=== PATIENT | female | born 1950 | race Caucasian/White ===

== ENCOUNTER 2022-06-11 10:04 | Inpatient (IN) | payer MEDICARE, OTHER ==
[~2022-06-11] VITALS: Ht 162.6 cm; Wt 49.0 kg
[2022-06-11] MEDS ORDERED: SODIUM CHLORIDE 0.9% 500 ML IV ONE (10:30)
[2022-06-11 10:58] LABS: Basophils # (auto) 0 10 ^3/uL (0-0.2); Basophils % (auto) 0.4 % (0.0-2.0); Eosinophils # (auto) 0 10 ^3/uL (0-0.8); Eosinophils % (auto) 0.1 % (0.0-7.0); Hematocrit 45.8 % (36.0-46.0); Hemoglobin 15.4 g/dL (12.2-16.2); Lymphocytes # (auto) 1.2 10 ^3/uL (0.4-5.4); Lymphocytes % (auto) 21.1 % (10.0-50.0); Mean Corpuscular Hemoglobin 30.9 pg (28.0-32.0); Mean Corpuscular Hgb Conc. 33.7 g/dL (32.0-36.0); Mean Corpuscular Volume 91.7 fL (80.0-100.0); Monocytes # (auto) 0.4 10 ^3/uL (0-1.3); Monocytes % (auto) 6.8 % (0.0-12.0); Neutrophils # (auto) 4.2 10 ^3/uL (1.6-8.6); Neutrophils % (auto) 71.6 % (37.0-80.0); Nucleated Red Blood Cells % 0.1 %; Red Cell Distribution Width 12.5 % (11.8-14.3); White Blood Cell 5.9 10^3/uL (4.4-10.8)
[2022-06-11 11:07] LABS: Albumin 3.4 g/dL (3.4-5.0); Calcium 8.5 mg/dL (8.5-10.1); Magnesium 1.6 mg/dL (1.6-2.6); Potassium 3.7 mmol/L (3.5-5.1)
[2022-06-11 11:10] LABS: BUN/Creatinine Ratio 18.2; Bilirubin, Total 0.6 mg/dL (0.2-1.0)
[2022-06-11] MEDS ORDERED: AZIT1POW PO (14:31)
[2022-06-11] MEDS ORDERED: ONDA-144 PO (14:31)
[2022-06-11] MEDS ORDERED: METH4PAK PO (14:32)
[2022-06-11] MEDS ORDERED: methylPREDNISolone SOD SUCC 125 MG/2 ML VL IV ONE (14:45)
[2022-06-11] MEDS ORDERED: AZITHROMYCIN 500MG/ 250ML 250 ML IV ONE (14:45)
[2022-06-11] MEDS ORDERED: SODIUM CHLORIDE 0.9% 1,000 ML IV ONE ×2 (16:00)
[2022-06-11] MEDS ORDERED: IPRATROPIUM BROM 0.5 MG/2.5ML INH SOL NEB PRN (16:00)
[2022-06-11] MEDS ORDERED: IOHEXOL 350 MG/ML 100ML IJ ONE (16:30)
[2022-06-11 16:48] VITALS: BP 124/84
[2022-06-11] MEDS ORDERED: levoFLOXacin 500MG 100 ML IV ONE (17:00)
[2022-06-11] MEDS ORDERED: ALBUTEROL SULF 2.5 MG/0.5ML(0.5%) NEB SOLN HHN PRN (18:00)
[2022-06-11] MEDS ORDERED: HYDROmorphone HCL 2 MG/ML VL/or syr IV ONE (19:15)
[2022-06-12] MEDS ORDERED: HYDROmorphone HCL 2 MG/ML VL/or syr IV ONE (05:15)
[2022-06-12 06:03] LABS: Urine Bacteria FEW /hpf (None Seen); Urine Blood Negative /uL (Negative); Urine Mucus FEW (None Seen); Urine WBC 2 /hpf (0 - 5)
[2022-06-12 06:31] LABS: Basophils # (auto) 0.1 10 ^3/uL (0-0.2); Basophils % (auto) 0.5 % (0.0-2.0); Eosinophils # (auto) 0 10 ^3/uL (0-0.8); Hematocrit 42.3 % (36.0-46.0); Hemoglobin 14.9 g/dL (12.2-16.2); Lymphocytes # (auto) 0.6 10 ^3/uL (0.4-5.4); Lymphocytes % (auto) 5.2 % (10.0-50.0); Mean Corpuscular Hemoglobin 31.5 pg (28.0-32.0); Mean Corpuscular Hgb Conc. 35.2 g/dL (32.0-36.0); Mean Corpuscular Volume 89.6 fL (80.0-100.0); Monocytes # (auto) 0.6 10 ^3/uL (0-1.3); Monocytes % (auto) 5.3 % (0.0-12.0); Neutrophils # (auto) 10.8 10 ^3/uL (1.6-8.6); Nucleated Red Blood Cells % 0.1 %; Red Blood Cells 4.72 10^6/uL (4.0-5.20); Red Cell Distribution Width 12.2 % (11.8-14.3); White Blood Cell 12.2 10^3/uL (4.4-10.8)
[2022-06-12 06:49] LABS: BUN/Creatinine Ratio 35.3; Calcium 8.1 mg/dL (8.5-10.1); Potassium 3.4 mmol/L (3.5-5.1)
[2022-06-12 11:19] LABS: Alcohol, Urine < 3.0 mg/dL (0-10); Amphetamine Screen, Urine NEGATIVE (NEGATIVE); Barbiturate Scree,Urine NEGATIVE (NEGATIVE); Benzodiazephine Screen, Urine POSITIVE (NEGATIVE); Cannabinoid Screen, Urine POSITIVE (NEGATIVE); Cocaine Screen, Urine NEGATIVE (NEGATIVE); Opiate Scree,Urine NEGATIVE (NEGATIVE); Phencyclidine Screen, Urine NEGATIVE (NEGATIVE)
[2022-06-12] MEDS: levoFLOXacin 250MG 50 ML IV SCH (12:11)
[2022-06-12] MEDS: PANTOPRAZOLE 40 MG/10 ML VIAL INJ IV SCH (12:12)
[2022-06-12] MEDS: ONDANSETRON HCL 4 MG/2 ML VIAL IV PRN (12:12)
[2022-06-12] MEDS: LORazepam 0.5 MG TAB PO PRN ×2 (12:12→20:22)
[2022-06-12] MEDS ORDERED: REMDESIVIR PER PHARMACY 0 ML IV SCH (18:15)
[2022-06-12] MEDS ORDERED: DexAMETHasone SOD PHOS 10MG/1ML VIAL INJ IV ONE (18:15)
[2022-06-12] MEDS ORDERED: REMDESIVIR 200 MG in NS 210ml LOADING DOSE ADULT IV ONE (20:00)
[2022-06-12] MEDS: POTASSIUM CHL 20MEQ/100ML 100 ML IV SCH (20:23)
[2022-06-12] MEDS: ACETAMINOPHEN 325 MG TAB PO PRN (20:23)
[2022-06-13] MEDS: POTASSIUM CHL 20MEQ/100ML 100 ML IV SCH (00:12)
[2022-06-13 06:48] LABS: Hematocrit 38.1 % (36.0-46.0); Hemoglobin 13.7 g/dL (12.2-16.2); Mean Corpuscular Hemoglobin 34.6 pg (28.0-32.0); Mean Corpuscular Hgb Conc. 35.9 g/dL (32.0-36.0); Mean Corpuscular Volume 96.3 fL (80.0-100.0); Red Blood Cells 3.96 10^6/uL (4.0-5.20); Red Cell Distribution Width 12.1 % (11.8-14.3); White Blood Cell 18.8 10^3/uL (4.4-10.8)
[2022-06-13 06:53] LABS: Basophils % (manual) 0 (0.0-2.0); Blast Cells 0; Eosinophils % (manual) 0 (0-7); Metamyelocytes % 0; Monocytes % (manual) 0 (0-12); Myelocytes % 0; Promyelocytes % 0; Reactive Lymphocytes 0
[2022-06-13 06:59] LABS: Potassium 4.2 mmol/L (3.5-5.1)
[2022-06-13 07:11] LABS: Bilirubin, Total 0.4 mg/dL (0.2-1.0); Calcium 8.2 mg/dL (8.5-10.1)
[2022-06-13] MEDS: ACETAMINOPHEN 325 MG TAB PO PRN (08:16)
[2022-06-13 09:27] LABS: Band Neutrophils % (manual) 26; Lymphocytes % (manual) 6 (10.0-50.0)
[2022-06-13] MEDS: levoFLOXacin 250MG 50 ML IV SCH (10:10)
[2022-06-13] MEDS: PANTOPRAZOLE 40 MG/10 ML VIAL INJ IV SCH (10:10)
[2022-06-13] MEDS: DexAMETHasone SOD PHOS 10MG/1ML VIAL INJ IV SCH (10:10)
[2022-06-13] MEDS: HYDROcodone-ACET 5/325MG TAB PO PRN ×2 (10:48→17:19)
[2022-06-13] MEDS: REMDESIVIR 100mg 100 MG in SODIUM CHL 0.9% 230 ML IV SCH (17:19)
[2022-06-13 17:33] VITALS: BP 117/74
[2022-06-13 18:10] VITALS: BP 117/74
[2022-06-13 22:00] VITALS: BP 114/59
[2022-06-14] MEDS: HYDROcodone-ACET 5/325MG TAB PO PRN ×3 (00:06→16:36)
[2022-06-14 06:29] LABS: Basophils # (auto) 0 10 ^3/uL (0-0.2); Eosinophils # (auto) 0 10 ^3/uL (0-0.8); Hematocrit 38.6 % (36.0-46.0); Hemoglobin 13.6 g/dL (12.2-16.2); Lymphocytes # (auto) 0.6 10 ^3/uL (0.4-5.4); Lymphocytes % (auto) 3.5 % (10.0-50.0); Mean Corpuscular Hemoglobin 31.9 pg (28.0-32.0); Mean Corpuscular Hgb Conc. 35.1 g/dL (32.0-36.0); Mean Corpuscular Volume 90.7 fL (80.0-100.0); Monocytes # (auto) 0.6 10 ^3/uL (0-1.3); Monocytes % (auto) 3.8 % (0.0-12.0); Neutrophils # (auto) 14.7 10 ^3/uL (1.6-8.6); Neutrophils % (auto) 92.7 % (37.0-80.0); Red Blood Cells 4.26 10^6/uL (4.0-5.20); Red Cell Distribution Width 12.1 % (11.8-14.3); White Blood Cell 15.9 10^3/uL (4.4-10.8)
[2022-06-14 06:46] LABS: BUN/Creatinine Ratio 41.1; Calcium 8.4 mg/dL (8.5-10.1)
[2022-06-14 06:50] LABS: Bilirubin, Total 0.4 mg/dL (0.2-1.0); Total Protein 5.7 g/dL (6.4-8.2)
[2022-06-14] MEDS: PANTOPRAZOLE 40 MG/10 ML VIAL INJ IV SCH (08:59)
[2022-06-14] MEDS: ENOXAPARIN SOD 40 MG/0.4 ML SYRINGE SC SCH (08:59)
[2022-06-14] MEDS: DexAMETHasone SOD PHOS 10MG/1ML VIAL INJ IV SCH (08:59)
[2022-06-14] MEDS: levoFLOXacin 250MG 50 ML IV SCH (08:59)
[2022-06-14] MEDS: LORazepam 0.5 MG TAB PO PRN (09:05)
[2022-06-14 09:18] VITALS: BP 123/64
[2022-06-14 11:10] VITALS: BP 120/61
[2022-06-14 13:00] VITALS: BP 127/79
[2022-06-14] MEDS: REMDESIVIR 100mg 100 MG in SODIUM CHL 0.9% 230 ML IV SCH (14:29)
[2022-06-14 17:00] VITALS: BP 116/69
[2022-06-14] MEDS: ACETAMINOPHEN 325 MG TAB PO PRN (20:28)
[2022-06-14 22:00] VITALS: BP 119/72
[2022-06-15] MEDS: HYDROcodone-ACET 5/325MG TAB PO PRN ×3 (00:44→15:28)
[2022-06-15 05:00] VITALS: BP 133/73
[2022-06-15 07:04] LABS: Basophils # (auto) 0 10 ^3/uL (0-0.2); Eosinophils # (auto) 0 10 ^3/uL (0-0.8)
[2022-06-15 07:06] LABS: Basophils % (auto) 0.1 % (0.0-2.0); Hematocrit 36.5 % (36.0-46.0); Hemoglobin 13.2 g/dL (12.2-16.2); Lymphocytes # (auto) 0.6 10 ^3/uL (0.4-5.4); Lymphocytes % (auto) 4.9 % (10.0-50.0); Mean Corpuscular Hemoglobin 35.8 pg (28.0-32.0); Mean Corpuscular Hgb Conc. 36.1 g/dL (32.0-36.0); Mean Corpuscular Volume 99.3 fL (80.0-100.0); Monocytes % (auto) 8.6 % (0.0-12.0); Neutrophils # (auto) 10.2 10 ^3/uL (1.6-8.6); Neutrophils % (auto) 86.4 % (37.0-80.0); Red Blood Cells 3.68 10^6/uL (4.0-5.20); Red Cell Distribution Width 11.9 % (11.8-14.3); White Blood Cell 11.8 10^3/uL (4.4-10.8)
[2022-06-15 07:28] LABS: Albumin 2.9 g/dL (3.4-5.0); Calcium 7.7 mg/dL (8.5-10.1); Potassium 3.5 mmol/L (3.5-5.1)
[2022-06-15 07:31] LABS: BUN/Creatinine Ratio 40.7; Bilirubin, Total 0.3 mg/dL (0.2-1.0); Total Protein 5.6 g/dL (6.4-8.2)
[2022-06-15 09:00] VITALS: BP 117/79
[2022-06-15] MEDS: ENOXAPARIN SOD 40 MG/0.4 ML SYRINGE SC SCH (09:10)
[2022-06-15] MEDS: levoFLOXacin 250MG 50 ML IV SCH (09:10)
[2022-06-15] MEDS: DexAMETHasone SOD PHOS 10MG/1ML VIAL INJ IV SCH (09:10)
[2022-06-15 13:00] VITALS: BP 130/77
[2022-06-15] MEDS: REMDESIVIR 100mg 100 MG in SODIUM CHL 0.9% 230 ML IV SCH (15:28)
[2022-06-15 17:00] VITALS: BP 143/76
[2022-06-15] MEDS: ACETAMINOPHEN 325 MG TAB PO PRN (20:43)
[2022-06-15] MEDS: ONDANSETRON HCL 4 MG/2 ML VIAL IV PRN (20:54)
[2022-06-15] MEDS ORDERED: traMADol HCL 50 MG TAB PO ONE (21:15)
[2022-06-15 22:00] VITALS: BP 154/83
[2022-06-16 05:00] VITALS: BP 142/78
[2022-06-16 06:49] LABS: Albumin 2.8 g/dL (3.4-5.0); Calcium 7.6 mg/dL (8.5-10.1); Potassium 3.6 mmol/L (3.5-5.1)
[2022-06-16 06:53] LABS: BUN/Creatinine Ratio 40.4; Bilirubin, Total 0.3 mg/dL (0.2-1.0); Total Protein 5.5 g/dL (6.4-8.2)
[2022-06-16 07:22] LABS: Basophils # (auto) 0 10 ^3/uL (0-0.2); Basophils % (auto) 0.2 % (0.0-2.0); Eosinophils # (auto) 0 10 ^3/uL (0-0.8); Hematocrit 39.9 % (36.0-46.0); Hemoglobin 13.9 g/dL (12.2-16.2); Lymphocytes # (auto) 0.7 10 ^3/uL (0.4-5.4); Lymphocytes % (auto) 5.8 % (10.0-50.0); Mean Corpuscular Hemoglobin 30.9 pg (28.0-32.0); Mean Corpuscular Hgb Conc. 34.7 g/dL (32.0-36.0); Mean Corpuscular Volume 88.9 fL (80.0-100.0); Monocytes % (auto) 8.8 % (0.0-12.0); Neutrophils % (auto) 85.2 % (37.0-80.0); Nucleated Red Blood Cells % 0.4 %; Red Blood Cells 4.49 10^6/uL (4.0-5.20); Red Cell Distribution Width 11.8 % (11.8-14.3); White Blood Cell 11.8 10^3/uL (4.4-10.8)
[2022-06-16] MEDS: DexAMETHasone SOD PHOS 10MG/1ML VIAL INJ IV SCH (08:33)
[2022-06-16] MEDS: levoFLOXacin 250MG 50 ML IV SCH (08:33)
[2022-06-16] MEDS: ENOXAPARIN SOD 40 MG/0.4 ML SYRINGE SC SCH (08:33)
[2022-06-16] MEDS: HYDROcodone-ACET 5/325MG TAB PO PRN (08:34)
[2022-06-16] MEDS ORDERED: CALCIUM CARB 500 MG CHEW TAB PO SCH (10:00)
[2022-06-16] MEDS ORDERED: CHOLECALCIFEROL (VITD3) 1,000UNIT=25mCg TAB PO SCH (10:00)
[2022-06-16] MEDS ORDERED: ACETAMINOPHEN 500 MG TAB PO SCH (14:00)
[2022-06-16] MEDS ORDERED: CHOL1TAB30 PO (14:31)
[2022-06-16] MEDS: REMDESIVIR 100mg 100 MG in SODIUM CHL 0.9% 230 ML IV SCH (16:00)
[2022-06-16 16:29] VITALS: BP 146/72
== END 2022-06-16 18:19 | disposition home or self-care (01) | DRG 177 ==
LOC: EDBD 10:04 → ER 10:04 → OVERFLOW 15:52 → TELE-WESTW 06-13 16:13
PROVIDERS: ADMIT Nurse Practitioner Family; ATTEND Student in an Organized Health Care Education/Training Program
PROC: XW033E5 Introduction of Remdesivir Anti-infective into Peripheral Vein, Percutaneous Approach, New Technology Group 5 (ICD-10-PCS; principal; 2022-06-12)
DX: U07.1 COVID-19 (principal); G92.8 Other toxic encephalopathy; J15.6 Pneumonia due to other Gram-negative bacteria; J12.82 Pneumonia due to coronavirus disease 2019; J96.01 Acute respiratory failure with hypoxia; E44.1 Mild protein-calorie malnutrition; J98.11 Atelectasis; F05 Delirium due to known physiological condition; Z68.1 Body mass index [BMI] 19.9 or less, adult; Z23 Encounter for immunization; E87.6 Hypokalemia; D72.829 Elevated white blood cell count, unspecified; J43.9 Emphysema, unspecified; E83.51 Hypocalcemia; F12.90 Cannabis use, unspecified, uncomplicated; E86.0 Dehydration; I10 Essential (primary) hypertension; R55 Syncope and collapse; M81.0 Age-related osteoporosis without current pathological fracture; F17.210 Nicotine dependence, cigarettes, uncomplicated; Z88.0 Allergy status to penicillin; Z88.5 Allergy status to narcotic agent; Z98.51 Tubal ligation status; Z90.49 Acquired absence of other specified parts of digestive tract
CPT/HCPCS: 36415; 36600; 70450; 71045; 71275; 80048; 80053; 80307; 81001; 82805; 82962; 83735; 83880; 84484; 85007; 85025; 85027; 85379; 85652; 86141; 87040; 87426; 93005; 93306; 93886; 93970; 96361; 96365; 96366; 96367; 96375; 96376; 97163; C9113; G0378; J1100; J1956; J2405; J3480

== ENCOUNTER 2022-06-29 19:22 | Emergency (ER) | payer MEDICARE ==
[~2022-06-29] VITALS: Ht 152.4 cm; Wt 50.0 kg
[~2022-06-29 19:22] MED LIST: AZIT1POW PO; CHOL1TAB30 PO; METH4PAK PO; ONDA-144 PO
[2022-06-29] MEDS ORDERED: ONDANSETRON HCL 4 MG/2 ML VIAL IV ONE (19:45)
[2022-06-29] MEDS ORDERED: HYDROmorphone HCL 2 MG/ML VL/or syr IV ONE (19:45)
[2022-06-29 20:37] LABS: Albumin 3.9 g/dL (3.4-5.0); Calcium 8.7 mg/dL (8.5-10.1); Magnesium 1.8 mg/dL (1.6-2.6); Potassium 3.5 mmol/L (3.5-5.1)
[2022-06-29 20:42] LABS: BUN/Creatinine Ratio 15.2; Bilirubin, Total 0.5 mg/dL (0.2-1.0); Total Protein 6.7 g/dL (6.4-8.2)
[2022-06-29 22:02] LABS: Basophils # (auto) 0 10 ^3/uL (0-0.2); Basophils % (auto) 0.5 % (0.0-2.0); Eosinophils # (auto) 0.1 10 ^3/uL (0-0.8); Eosinophils % (auto) 1.7 % (0.0-7.0); Hematocrit 37.3 % (36.0-46.0); Hemoglobin 12.6 g/dL (12.2-16.2); Lymphocytes # (auto) 1.9 10 ^3/uL (0.4-5.4); Lymphocytes % (auto) 31.4 % (10.0-50.0); Mean Corpuscular Hemoglobin 31.4 pg (28.0-32.0); Mean Corpuscular Hgb Conc. 33.7 g/dL (32.0-36.0); Mean Corpuscular Volume 93.2 fL (80.0-100.0); Monocytes # (auto) 0.4 10 ^3/uL (0-1.3); Monocytes % (auto) 6.4 % (0.0-12.0); Neutrophils # (auto) 3.6 10 ^3/uL (1.6-8.6); Nucleated Red Blood Cells % 0.2 %; Red Blood Cells 4.01 10^6/uL (4.0-5.20); Red Cell Distribution Width 13.3 % (11.8-14.3); White Blood Cell 5.9 10^3/uL (4.4-10.8)
[2022-06-30] MEDS ORDERED: HYDROmorphone HCL 2 MG/ML VL/or syr IM ONE (00:30)
[2022-06-30 01:50] VITALS: BP 102/54
== END 2022-06-30 01:53 | disposition home or self-care (01) ==
LOC: ER 19:28
DX: S00.83XA Contusion of other part of head, initial encounter (principal); S60.512A Abrasion of left hand, initial encounter; S60.511A Abrasion of right hand, initial encounter; S50.311A Abrasion of right elbow, initial encounter; F17.210 Nicotine dependence, cigarettes, uncomplicated; Z90.49 Acquired absence of other specified parts of digestive tract; Z90.89 Acquired absence of other organs; Z79.2 Long term (current) use of antibiotics; Z79.899 Other long term (current) drug therapy; Z88.0 Allergy status to penicillin; Z88.5 Allergy status to narcotic agent; W01.0XXA Fall on same level from slipping, tripping and stumbling without subsequent striking against object, initial encounter; Y93.89 Activity, other specified; Y92.89 Other specified places as the place of occurrence of the external cause; Y99.8 Other external cause status
CPT/HCPCS: 36415; 70450; 70486; 80053; 83735; 83880; 85025; 93005; 96372; 96374; 96375; 99285; J1170; J2405